=== PATIENT | male | born 1990 | race Caucasian/White ===

== ENCOUNTER 2017-05-27 09:49 | Emergency (ER) | payer MEDICAID, OTHER ==
[2017-05-27] MEDS ORDERED: Rocephin 1000 MG INJ IM ONE (10:15)
--- NOTE | 2017-05-27 10:19 | ERPHSYRPT ---
- History of Present Illness Time Seen by Provider: 05/27/17 10:15 Source: patient Exam Limitations: no limitations Patient Subjective Stated Complaint: swelling to right side of face. toothache on right side for two days. Triage Nursing Assessment: noted moderate swelling and redness to right side of face. denies pain at this time. Physician History: swelling to right side of face. toothache on right side for two days. Timing/Duration: day(s) Severity: mild Associated Symptoms: denies symptoms Allergies/Adverse Reactions: amoxicillin Allergy (Verified 05/27/17 10:11) Penicillins Allergy (Verified 05/27/17 10:11) Home Medications: No Reportable Medications [No Reported Medications] 05/27/17 [History] Hx Tetanus, Diphtheria Vaccination/Date Given: No Hx Influenza Vaccination/Date Given: No Hx Pneumococcal Vaccination/Date Given: No - Review of Systems Constitutional: No Symptoms Eyes: No Symptoms Ears, Nose, & Throat: No Symptoms Respiratory: No Symptoms Skin: No Symptoms Neurological: No Symptoms - Past Medical History Pertinent Past Medical History: No Neurological History: No Pertinent History ENT History: No Pertinent History Cardiac History: No Pertinent History Respiratory History: No Pertinent History Endocrine Medical History: No Pertinent History Musculoskeletal History: No Pertinent History GI Medical History: No Pertinent History History: No Pertinent History Psycho-Social History: No Pertinent History Male Reproductive Disorders: No Pertinent History - Past Surgical History Past Surgical History: Yes Neuro Surgical History: No Pertinent History Cardiac: No Pertinent History Respiratory: No Pertinent History Gastrointestinal: Appendectomy Genitourinary: No Pertinent History Musculoskeletal: No Pertinent History Male Surgical History: No Pertinent History - Social History Smoking Status: Current every day smoker How long have you smoked: 5 Exposure to second hand smoke: No Drug Use: marijuana Patient Lives Alone: No - Nursing Vital Signs Nursing Vital Signs: Initial Vital Signs Temperature 98.9 F 05/27/17 10:01 Pulse Rate 69 05/27/17 10:01 Respiratory Rate 16 05/27/17 10:01 Blood Pressure 130/84 05/27/17 10:01 O2 Sat by Pulse Oximetry 99 05/27/17 10:01 Pain Scale Pain Intensity 0 - Physical Exam General Appearance: no apparent distress Eye Exam: PERRL/EOMI Ears, Nose, Throat Exam: moist mucous membranes Neck Exam: normal inspection Respiratory Exam: normal breath sounds Cardiovascular Exam: regular rate/rhythm SpO2: 99 Oxygen Delivery: Room Air - Course Nursing assessment & vital signs reviewed: Yes Ordered Tests: Medication Summary Generic Name Dose Route Start Last Admin Trade Name Madina PRN Reason Stop Dose Admin Ceftriaxone Sodium 1,000 mg 05/27/17 10:15 Rocephin 1000 Mg Inj IM 05/27/17 10:16 STAT ONE - Progress Progress: unchanged Counseled pt/family regarding: diagnosis, need for follow-up - Departure Time of Disposition: 10:17 Departure Disposition: Home Clinical Impression: Dental abscess Condition: Stable Critical Care Time: No Instructions: Tooth Abscess (DC) Additional Instructions: Continue ciprofloxacin 1 tablet twice a day. They will all the medicines gone. Take Aleve 2 tablets twice a day for 3-4 days. Follow-up with your dentist.
[2017-05-27] MEDS ORDERED: Rocephin 1000 MG INJ ONE (10:23)
[2017-05-27] MEDS ORDERED: XYLOCAINE 1% HCL 20 ML MDV ONE (10:23)
[2017-05-27 10:56] VITALS: BP 119/87; PULSE 91; O2SAT 97
== END 2017-05-27 10:55 | disposition home or self-care (01) ==
LOC: ED 09:49
DX: K04.7 Periapical abscess without sinus (principal)
CPT/HCPCS: 96372; 99284; J0696